=== PATIENT | female | born 1945 | race Caucasian/White ===

== ENCOUNTER 2021-10-18 07:30 | Emergency (ER) | payer MEDICARE, OTHER ==
[2021-10-18] MEDS ORDERED: NAPROXEN500 MG PO (08:28)
== END 2021-10-18 08:35 | disposition home or self-care (01) ==
LOC: FER 07:30
DX: M54.50 Low back pain, unspecified (principal); Z88.1 Allergy status to other antibiotic agents
CPT/HCPCS: 99283